=== PATIENT | female | born 1935 ===

== ENCOUNTER → 2021-11-11 | Outpatient (CLI) | payer MEDICARE, OTHER ==
[2021-11-11 15:20] LABS: Hematocrit 25.6 % (33.0-51.0); Hemoglobin 7.7 g/dL (11.5-16.0); Mean Corpuscular HGB 30.7 pg (26.0-34.0); Mean Corpuscular HGB Conc 30.1 g/dL (31.5-36.5); Mean Corpuscular Volume 102 fL (80-100); NRBC ABSOLUTE 0.07 K/mm3 (0.00-0.02); NRBC Auto 1.9 /100 WBC (0.0-0.2); RDW Coefficient Variation 18.8 % (11.7-14.2); RDW Standard Deviation 66.4 fL (35.1-46.3); Red Blood Cell Count 2.51 M/mm3 (3.80-5.20); White Blood Cell Count 3.75 K/mm3 (4.00-11.30)
[2021-11-11 15:55] LABS: Alanine Aminotransfer (ALT/SGP 9 U/L (12-78); Albumin, Blood 2.7 g/dL (3.4-5.0); Albumin/Globulin Ratio 0.8 (0.8-1.8); Alk Phos 50 U/L (50-136); Anion Gap 8 mmol/L (6-16); Aspartate Aminotrans (AST/SGOT 17 U/L (12-37); Bilirubin, Total 0.7 mg/dL (0.1-1.0); Blood Urea Nitrogen 17 mg/dL (8-24); Bun/Creatinine Ratio 19.9 (12.0-20.0); CO2, Blood 28 mmol/L (21-32); Calcium, Blood 8.6 mg/dL (8.5-10.1); Chloride, Blood 106 mmol/L (98-108); Creatinine, Blood 0.86 mg/dL (0.40-1.00); Globulin, Blood 3.6 g/dL (2.2-4.0); Glomerular Filtration Rate >60 (60-); Glucose, Blood 89 mg/dL (70-99); Sodium, Blood 142 mmol/L (136-145); Total Protein, Blood 6.3 g/dL (6.4-8.2)
[2021-11-11 16:03] LABS: Platelet Count 31 K/mm3 (150-400)
[2021-11-11 16:09] LABS: BAND PERCENT MAN 4 % (0-8); BASOPHILS PERCENT MAN 0 % (0-2); BLASTS PERCENT MAN 3 % (0-0); EOSINOPHILS PERCENT MAN 0 % (0-6); LYMPHOCYTES % ATYPICAL MANUAL 2 % (0-0); LYMPHOCYTES ABSOLUTE MAN 1.12 K/mm3 (0.84-5.20); LYMPHOCYTES PERCENT MAN 28 % (21-46); METAMYELOCYTE ABSOLUTE MAN 0.15 K/mm3 (0.00-0.00); METAMYELOCYTE PERCENT MAN 4 % (0-0); MONOCYTES ABSOLUTE MAN 0.11 K/mm3 (0.16-1.47); MONOCYTES PERCENT MAN 3 % (4-13); NEUTROPHILS ABSOLUTE MAN 2.25 K/mm3 (1.96-9.15); SEG NEUTROPHILS PERCENT MAN 56 % (41-73); TOTAL CELLS COUNTED 100
== END | disposition home or self-care (01) ==
LOC: EDSTATUS 11:39 → LAB RH 12:59
PROVIDERS: Internal Medicine
DX: U07.1 COVID-19 (principal)
CPT/HCPCS: 80053; 85025